=== PATIENT | male | born 1965 | race Caucasian/White ===

== ENCOUNTER → 2020-10-28 | Outpatient (CLI) | payer OTHER ==
[2020-10-28 11:01] LABS: HEMATOCRIT 25.8 % (42.0-52.0); HEMOGLOBIN 8.8 g/dL (13.5-18.0); MEAN CELL VOLUME 87 fl (78-100); MEAN CORPUSCULAR HEMOGLOBIN 30 pg (27-31); MEAN CORPUSCULAR HGB CONC 34 g/dL (33-37); MEAN PLATELET VOLUME 9.1 fl (7.4-10.4); PLATELET COUNT 138 K/mm3 (130-400); RED BLOOD COUNT 2.98 M/mm3 (4.20-5.60); RED CELL DISTRIBUTION WIDTH 16.9 % (11.5-14.5); WHITE BLOOD COUNT 2.6 K/mm3 (4.8-10.8)
[2020-10-28 11:17] LABS: ALBUMIN 2.9 g/dL (3.5-5.0); PROTHROMBIN TIME 13.2 SECONDS (9.0-12.0)
[2020-10-28 11:18] LABS: POTASSIUM 4.1 mmol/L (3.5-5.1)
[2020-10-28 11:19] LABS: CALCIUM 7.8 mg/dL (8.3-10.5)
[2020-10-28 11:20] LABS: TOTAL PROTEIN 5.4 g/dL (6.4-8.3)
[2020-10-28 11:22] LABS: TOTAL BILIRUBIN 1.9 mg/dL (0.2-1.2)
[2020-10-28 13:19] LABS: HYPOCHROMIA 2+; LYMPHOCYTE 24 % (20-51); MONOCYTE 8 % (3-10); NEUTROPHILS 66 % (42-75)
== END ==
LOC: LAB 10:28
PROVIDERS: Internal Medicine
DX: K75.81 Nonalcoholic steatohepatitis (NASH) (principal); K74.60 Unspecified cirrhosis of liver

== ENCOUNTER → 2020-11-01 | Outpatient (CLI) | payer OTHER | LOC: RAD 07:17 | DX: K75.81 Nonalcoholic steatohepatitis (NASH) (principal); K74.60 Unspecified cirrhosis of liver; R18.8 Other ascites | CPT/HCPCS: 19804; C1729 ==

== ENCOUNTER → 2020-11-18 | Outpatient (CLI) | payer OTHER | LOC: RAD 14:10 | DX: K75.81 Nonalcoholic steatohepatitis (NASH) (principal); K74.60 Unspecified cirrhosis of liver | CPT/HCPCS: 19804; C1729 ==

== ENCOUNTER → 2020-11-30 | Outpatient (CLI) | payer OTHER ==
[2020-11-30 10:35] LABS: HEMATOCRIT 25.9 % (42.0-52.0); HEMOGLOBIN 8.7 g/dL (13.5-18.0); MEAN CELL VOLUME 88 fl (78-100); MEAN CORPUSCULAR HEMOGLOBIN 30 pg (27-31); MEAN CORPUSCULAR HGB CONC 34 g/dL (33-37); MEAN PLATELET VOLUME 8.9 fl (7.4-10.4); PLATELET COUNT 147 K/mm3 (130-400); RED BLOOD COUNT 2.94 M/mm3 (4.20-5.60); RED CELL DISTRIBUTION WIDTH 16.9 % (11.5-14.5); WHITE BLOOD COUNT 3.1 K/mm3 (4.8-10.8)
[2020-11-30 10:47] LABS: ALBUMIN 2.6 g/dL (3.5-5.0); POTASSIUM 3.4 mmol/L (3.5-5.1)
[2020-11-30 10:48] LABS: CALCIUM 7.3 mg/dL (8.3-10.5)
[2020-11-30 10:50] LABS: PROTHROMBIN TIME 12.7 SECONDS (9.0-12.0); TOTAL PROTEIN 5.2 g/dL (6.4-8.3)
[2020-11-30 10:51] LABS: TOTAL BILIRUBIN 1.5 mg/dL (0.2-1.2)
[2020-11-30 11:25] LABS: LYMPHOCYTE 12 % (20-51); MONOCYTE 15 % (3-10); NEUTROPHILS 68 % (42-75)
== END ==
LOC: LAB 10:17
PROVIDERS: Internal Medicine
DX: K75.81 Nonalcoholic steatohepatitis (NASH) (principal)

== ENCOUNTER → 2020-12-06 | Outpatient (CLI) | payer OTHER ==
[2020-12-06 08:14] LABS: HEMATOCRIT 25.4 % (42.0-52.0); HEMOGLOBIN 8.5 g/dL (13.5-18.0); MEAN CELL VOLUME 90 fl (78-100); MEAN CORPUSCULAR HEMOGLOBIN 30 pg (27-31); MEAN CORPUSCULAR HGB CONC 34 g/dL (33-37); MEAN PLATELET VOLUME 9.3 fl (7.4-10.4); PLATELET COUNT 146 K/mm3 (130-400); RED BLOOD COUNT 2.82 M/mm3 (4.20-5.60); RED CELL DISTRIBUTION WIDTH 16.9 % (11.5-14.5); WHITE BLOOD COUNT 2.9 K/mm3 (4.8-10.8)
[2020-12-06 08:27] LABS: PROTHROMBIN TIME 13.2 SECONDS (9.0-12.0)
[2020-12-06 09:12] LABS: ALBUMIN 2.6 g/dL (3.5-5.0); POTASSIUM 3.5 mmol/L (3.5-5.1)
[2020-12-06 09:13] LABS: CALCIUM 7.6 mg/dL (8.3-10.5)
[2020-12-06 09:14] LABS: TOTAL PROTEIN 5.2 g/dL (6.4-8.3)
[2020-12-06 09:16] LABS: TOTAL BILIRUBIN 1.7 mg/dL (0.2-1.2)
[2020-12-06 10:33] LABS: HYPOCHROMIA 1+; LYMPHOCYTE 16 % (20-51); MICROCYTOSIS 1+; MONOCYTE 13 % (3-10); NEUTROPHILS 63 % (42-75); SCHISTOCYTES 1+
[2020-12-06 10:34] LABS: OVALOCYTES 1+
== END ==
LOC: LAB 07:05
DX: K75.81 Nonalcoholic steatohepatitis (NASH) (principal); K74.60 Unspecified cirrhosis of liver
CPT/HCPCS: 19804; C1729

== ENCOUNTER → 2020-12-13 | Outpatient (CLI) | payer OTHER ==
[2020-12-13 18:06] LABS: POTASSIUM 3.6 mmol/L (3.5-5.1)
[2020-12-13 18:08] LABS: CALCIUM 7.6 mg/dL (8.3-10.5)
== END ==
LOC: LAB 14:45
PROVIDERS: Internal Medicine
DX: K75.81 Nonalcoholic steatohepatitis (NASH) (principal); K74.60 Unspecified cirrhosis of liver

== ENCOUNTER → 2021-01-14 | Outpatient (CLI) | payer OTHER ==
[2021-01-14 15:40] LABS: HEMATOCRIT 27.7 % (42.0-52.0); HEMOGLOBIN 8.9 g/dL (13.5-18.0); MEAN CELL VOLUME 91 fl (78-100); MEAN CORPUSCULAR HEMOGLOBIN 29 pg (27-31); MEAN CORPUSCULAR HGB CONC 32 g/dL (33-37); MEAN PLATELET VOLUME 9.3 fl (7.4-10.4); PLATELET COUNT 143 K/mm3 (130-400); RED BLOOD COUNT 3.03 M/mm3 (4.20-5.60); RED CELL DISTRIBUTION WIDTH 14.8 % (11.5-14.5); WHITE BLOOD COUNT 2.5 K/mm3 (4.8-10.8)
[2021-01-14 15:45] LABS: ALBUMIN 2.8 g/dL (3.5-5.0)
[2021-01-14 15:46] LABS: POTASSIUM 4.1 mmol/L (3.5-5.1)
[2021-01-14 15:47] LABS: CALCIUM 8.1 mg/dL (8.3-10.5)
[2021-01-14 15:48] LABS: PROTHROMBIN TIME 12.6 SECONDS (9.0-12.0); TOTAL PROTEIN 5.8 g/dL (6.4-8.3)
[2021-01-14 15:50] LABS: TOTAL BILIRUBIN 1.1 mg/dL (0.2-1.2)
[2021-01-14 16:48] LABS: LYMPHOCYTE 18 % (20-51); MONOCYTE 26 % (3-10); NEUTROPHILS 49 % (42-75)
== END ==
LOC: LAB 15:23
PROVIDERS: Internal Medicine
DX: K75.81 Nonalcoholic steatohepatitis (NASH) (principal)